=== PATIENT | female | born 1930 | race Caucasian/White ===

== ENCOUNTER 2017-06-15 10:57 | Inpatient (IN) | payer OTHER ==
[2017-06-15] MEDS ORDERED: OXYCODONE PO PRN (12:33)
[2017-06-15] MEDS ORDERED: IRBESARTAN 300 MG PO SCH (12:45)
[2017-06-15] MEDS ORDERED: NON-FORMULARY MEDICATION (Hydrochlorothiazide [Hydrochlorothiazide] 12.5 MG) PO SCH ×22 (12:45)
[2017-06-15 13:06] VITALS: BMI 20.7
--- NOTE | 2017-06-15 16:07 | RS.PTINEVL ---
Subjective - Patient information Date of Evaluation: 06/15/17 Date of Arrival on Unit: 06/15/17 Admitted From:: Facility Transfer ([facility] s/p Left TKA 06/12/17) Usual Living Arrangement: Alone Home Environment: House, Stairs (few) (to go out to car/garage) Surgical History: Lumbar Spine (lumbar fusion 2013) Subjective Information/ Patient Comments:: Patient reports living alone. 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 Range of Motion - ROM Right Upper Extremity AROM: WFL's Left Upper Extremity AROM: WFL's Right Lower Extremity AROM: WFL's (due to recent TKA) Left Lower Extremity AROM: Moderate limitation Sensation - Sensation Right Lower Extremity Sensation: Intact/Normal Left Lower Extremity Sensation: Intact/Normal Balance - Sitting Balance and Reactions Static Sitting Balance: Good Dynamic Sitting Balance: Good (-) - Standing Balance and Reactions Static Standing Balance: Fair Dynamic Standing Balance: Fair Functional Mobility - Bed Mobility Scooting: CGA, 1 person assist, Verbal Cues, Tactile Cues Supine to Sit: Min Assist, 1 person assist, Verbal Cues, Tactile Cues - Transfers Sit to Stand: CGA, Min Assist, 1 person assist, Verbal Cues, Tactile Cues Stand to Sit: Min Assist, Mod Assist, 1 person assist, Verbal Cues, Tactile Cues Stand Pivot Transfers: Min Assist, 1 person assist, Verbal Cues, Tactile Cues Comments:: Patient holds onto walker when performing sit to stand transfer. Pt given VC's to use UE's to push from seated surface. patient given verbal cues to place left LE out before sitting down in the chair. Patient needs added assistance to slowly lower into the chair. - Safety Awareness Safety Awareness: Fair Ambulation - Ambulation Weight Bearing Status: FWB Assistive Device Used: Rolling Walker Distance: 60 feet Gait Deviations: Narrow Based gait, Step-to gait, Forward posture, Short stride Factors Affecting Ambulation: Pain, Weakness, Decreased Safety Treatment time - Time with patient Total treatment time: 20 (mins) Assessment - Assessment Problem List:: Decreased level of function, Requires training/education, Decreased safety/Risk of falls, Pain limits previous level of function Rehab Potential: Good Further Therapy Indicated?: Yes Short Term Goals GOAL #1: Sit to supine with CGA for LLE. Goal to be met by: 06/19/17 GOAL #2: Pt will consistently push with UE's from seat for sit/stand transfers. Goal to be met by: 06/19/17 GOAL #3: Sit to stand with CGA of one. Goal to be met by: 06/19/17 Health Information Coder Goals GOAL #1: All bed mobility independent. Goal to be met by: 06/22/17 GOAL #2: All transfers independent with good safety. Goal to be met by: 06/22/17 GOAL #3: Pt to amb. with RW, independently with good safety. Goal to be met by: 06/22/17 Plan Plan of Care: Therapeutic EX, Neuromuscular Re-Educ, Therapeutic Activity, Self- Care/Home Management Modalities: Cold Pack/Cryotherapy Frequency of Treatment: 1-2 X day, as tolerated Duration of Treatment: 1 Week Anticipated Discharge Destination: Home
[2017-06-15] MEDS: XARELTO PO SCH (16:21)
--- NOTE | 2017-06-15 16:28 | RS.OTINEVL ---
Subjective - Patient information Date of Evaluation: 06/15/17 Date of Arrival on Unit: 06/15/17 Admitted From:: Facility Transfer ([facility] s/p Left TKA 06/12/17) Usual Living Arrangement: Alone Living Arrangement Comments: Pt lives alone at home. Pt has stairs and a rail. She was using her cane to help her get down the steps with her rail. Pt was driving and has family that helps her. 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 Pt had her son make her an adaptive equipment for her shower. Current Level of Function: Partially Dependent Current Equipment Used at Home: Rollator and a cane, and an adapted piece for her bath tub Pain Assessment - Pain Pain Score: 6 Side: left Pain Location Body Site: Knee Pain Aggravating Factors: ADL's, Changing Position, Exercise/Activity, Standing , Sitting Pain Alleviating Factors: Ice, Medication, Position Change, Sitting, Standing, Lying Supine Interventions - Objective Patient Orientation: Person, Place, Time, Situation Current Interventions: IV's Observation: Pt is weak and would benefit from Occupational therapy. Interventions - ROM Right Upper Extremity AROM: WFL's Left Upper Extremity AROM: WFL's - Strength Right Upper Extremity Strength: Mild Weakness Left Upper Extremity Strength: Mild Weakness - Sensation Right Upper Extremity Sensation: Intact/Normal Left Upper Extremity Sensation: Intact/Normal Balance - Sitting Balance Static Sitting Balance: Fair Dynamic Sitting Balance: Fair - Standing Balance Static Standing Balance: Poor Dynamic Standing Balance: Poor ADL Skills - Self Feeding Self Feeding: Independent - Grooming Grooming: Min Assist - Bathing Bathing UE: Min Assist Bathing LE: Max Assist - Dressing Dressing UE: Min Assist Dressing LE: Max Assist - Toilet Management Toileting Management: Min Assist Functional Mobility - Bed Mobility Rolling R/L: CGA Scooting: CGA Supine to Sit: CGA Sit to Supine: CGA - Transfers Sit to Stand: Min Assist Stand to Sit: Min Assist Stand Pivot Transfers: Min Assist - Ambulation Weight Bearing Status: WBAT Assistive Device Used: Gait belt Assistance needed with Ambulation: Min Assist, 1 person assist - Safety Awareness Safety Awareness: Good Additional Treatment Performed - Additional units charged ADL: 15 - Time with patient Total treatment time: 25 Activities Patient Interests:: Watching Television Patient Education Patient Education: Education of diagnosis, Home Exercise Program, Education of Plan of Care Teaching Recipient: Patient Teaching Methods: Discussion Assessment Problem List:: Decreased level of function, Requires training/education, Decreased safety/Risk of falls, Weakness Rehab Potential: Good Further Therapy Indicated?: Yes Short Term Goals - Goals GOAL 1: Pt to be I with Home exercise program. Goal to be met by: 06/19/17 GOAL 2: Pt to be CGA for toilet transfers with Rolling walker. Goal to be met by: 06/19/17 GOAL 3: Pt to be CGA with sink level ADLS. Goal to be met by: 06/19/17 Assisted Goals GOAL 1: Pt to be Independent with HEP and to understand Adaptive EQuipment Goal to be met by: 06/24/17 GOAL 2: Pt to be Mod-I with toilet transfers. Goal to be met by: 06/24/17 GOAL 3: Pt to be mod I with sink level ADLS. Goal to be met by: 06/24/17 Plan Plan of Care: Therapeutic EX, Neuromuscular Re-Educ, Therapeutic Activity, Self- Care/Home Management Modalities: Cold Pack/Cryotherapy Frequency of Treatment: 1-2 X day, as tolerated Duration of Treatment: 2 Weeks Anticipated Discharge Destination: Home
[2017-06-15] MEDS: AVAPRO PO SCH (20:44)
[2017-06-15] MEDS: MEVACOR PO SCH (20:44)
[2017-06-15] MEDS ORDERED: NON-FORMULARY MEDICATION (Lovastatin [Lovastatin] 40 MG) PO SCH ×22 (21:00)
[2017-06-16] MEDS: SYNTHROID PO SCH (05:51)
[2017-06-16] MEDS: MICRO-K CAP PO SCH (08:01)
[2017-06-16] MEDS: HYDROCHLOROTHIAZIDE PO SCH (08:01)
[2017-06-16] MEDS ORDERED: NON-FORMULARY MEDICATION (Potassium Chloride [Potassium Chloride] 10 MEQ) PO SCH ×22 (09:00)
[2017-06-16] MEDS: OXYCODONE PO PRN (14:49)
[2017-06-16] MEDS: CLARITIN PO SCH (14:50)
[2017-06-16] MEDS: XARELTO PO SCH (16:07)
[2017-06-16] MEDS: COLACE PO SCH (20:29)
[2017-06-16] MEDS: MEVACOR PO SCH (20:29)
[2017-06-16] MEDS: AVAPRO PO SCH (20:29)
[2017-06-17] MEDS: SYNTHROID PO SCH (05:46)
[2017-06-17] MEDS: HYDROCHLOROTHIAZIDE PO SCH (08:58)
[2017-06-17] MEDS: MICRO-K CAP PO SCH (08:58)
[2017-06-17] MEDS: COLACE PO SCH ×2 (08:58→20:11)
[2017-06-17] MEDS: CLARITIN PO SCH (08:59)
[2017-06-17] MEDS: XARELTO PO SCH (16:43)
[2017-06-17] MEDS: AVAPRO PO SCH (20:10)
[2017-06-17] MEDS: MEVACOR PO SCH (20:11)
[2017-06-17] MEDS: OXYCODONE PO PRN (23:35)
[2017-06-18] MEDS: SYNTHROID PO SCH (05:30)
[2017-06-18] MEDS: MICRO-K CAP PO SCH (08:48)
[2017-06-18] MEDS: COLACE PO SCH ×2 (08:48→20:08)
[2017-06-18] MEDS: HYDROCHLOROTHIAZIDE PO SCH (08:49)
[2017-06-18] MEDS: CLARITIN PO SCH (08:49)
[2017-06-18] MEDS: XARELTO PO SCH (17:19)
[2017-06-18] MEDS: AVAPRO PO SCH (20:08)
[2017-06-18] MEDS: MEVACOR PO SCH (20:08)
[2017-06-18] MEDS: OXYCODONE PO PRN (22:08)
[2017-06-19] MEDS: SYNTHROID PO SCH (05:37)
[2017-06-19] MEDS: CLARITIN PO SCH (08:39)
[2017-06-19] MEDS: COLACE PO SCH ×2 (08:40→20:41)
[2017-06-19] MEDS: HYDROCHLOROTHIAZIDE PO SCH (08:40)
[2017-06-19] MEDS: MICRO-K CAP PO SCH (08:40)
[2017-06-19] MEDS: XARELTO PO SCH (16:26)
[2017-06-19] MEDS: AVAPRO PO SCH (20:40)
[2017-06-19] MEDS: MEVACOR PO SCH (20:41)
[2017-06-20 05:04] LABS: BASOPHILS # (AUTO) 0.1 K/uL (0-0.2); BASOPHILS % (AUTO) 0.7 % (0.0-3.0); EOSINOPHILS # (AUTO) 0.2 K/ul (0.0-0.7); EOSINOPHILS % (AUTO) 2.1 % (0.0-7.0); HEMATOCRIT 35.9 % (37.0-47.0); HEMOGLOBIN 12.1 g/dl (12.0-16.0); IMMATURE GRANULOCYTE % (AUTO) 1.2 % (0.0-5.0); LYMPHOCYTES # (AUTO) 1.6 K/uL (0.60-3.4); MEAN CORPUSCULAR HEMOGLOBIN 30.9 pg (27.0-31.0); MEAN CORPUSCULAR HGB CONC 33.7 (31.8-35.4); MEAN CORPUSCULAR VOLUME 91.8 fl (81.0-99.0); MONOCYTES # (AUTO) 1.1 K/uL (0.4-2.0); MONOCYTES % (AUTO) 12.7 (0-10); NEUTROPHILS # (AUTO) 5.5 K/ul (2.0-6.9); NEUTROPHILS % (AUTO) 64.3; PLATELET COUNT 302 10^3/uL (140-440); RED BLOOD COUNT 3.91 10^6/ul (4.20-5.40); WHITE BLOOD COUNT 8.53 K/ul (4.6-10.2)
[2017-06-20 05:31] LABS: ANION GAP 14.8; BUN/CREATININE RATIO 24.24; CALCIUM 9.5 mg/dL (8.2-10.2); CREATININE 0.66 mg/dL (0.60-1.30); POTASSIUM 3.8 mmol/L (3.5-5.10)
[2017-06-20] MEDS: SYNTHROID PO SCH (05:50)
[2017-06-20] MEDS: COLACE PO SCH ×2 (08:11→21:01)
[2017-06-20] MEDS: HYDROCHLOROTHIAZIDE PO SCH (08:11)
[2017-06-20] MEDS: MICRO-K CAP PO SCH (08:11)
[2017-06-20] MEDS: CLARITIN PO SCH (08:12)
[2017-06-20] MEDS: OXYCODONE PO PRN (15:23)
[2017-06-20] MEDS: XARELTO PO SCH (16:41)
[2017-06-20] MEDS: AVAPRO PO SCH (21:00)
[2017-06-20] MEDS: MEVACOR PO SCH (21:01)
[2017-06-21] MEDS: SYNTHROID PO SCH (05:38)
[2017-06-21] MEDS: COLACE PO SCH ×2 (08:20→21:09)
[2017-06-21] MEDS: HYDROCHLOROTHIAZIDE PO SCH (08:20)
[2017-06-21] MEDS: MICRO-K CAP PO SCH (08:20)
[2017-06-21] MEDS: CLARITIN PO SCH (08:20)
[2017-06-21] MEDS: OXYCODONE PO PRN (08:21)
[2017-06-21] MEDS: XARELTO PO SCH (16:15)
[2017-06-21] MEDS: MEVACOR PO SCH (21:09)
[2017-06-21] MEDS: AVAPRO PO SCH (21:09)
[2017-06-22] MEDS: SYNTHROID PO SCH (05:51)
[2017-06-22] MEDS: COLACE PO SCH ×2 (09:30→20:22)
[2017-06-22] MEDS: HYDROCHLOROTHIAZIDE PO SCH (09:31)
[2017-06-22] MEDS: OXYCODONE PO PRN ×2 (09:31→18:50)
[2017-06-22] MEDS: CLARITIN PO SCH (09:31)
[2017-06-22] MEDS: MICRO-K CAP PO SCH (09:31)
--- NOTE | 2017-06-22 09:51 | CT ---
EXAM: CTA chest HISTORY: Right lateral chest pain. TECHNIQUE: CTA chest with intravenous contrast. Unenhanced images were not provided. Multiplanar images. 3-D reconstructions. 125 ml of Omnipaque 350. FINDINGS: No comparison CT. There is mild to moderate scattered heterogeneous atheromatous disease of the thoracic and visualize d upper abdominal aorta. The aorta is ectatic. No acute intimal abnormality or dissection is ident ified. There is lower threshold aneurysmal caliber of the ascending aorta at 3 cm. Otherwise the a elliot had caliber within normal limits. No evidence of hemodynamically significant stenosis at the o rigin of the great vessels. Probable mild stenosis at the origin of the celiac trunk. There also m ay be mild stenosis at the origin of the main right renal artery incidentally noted. Heart size is normal. There is no pericardial effusion. Mild diffuse thickening of the esophageal w all. No mediastinal fluid collection. There is respiratory motion artifact degraded image quality especially on the lung targeted images. Chronic-appearing interstitial changes are seen. No consolidated pneumonia is obvious. There is n o vascular congestion, pneumothorax or pleural fluid. Discoid scarring in the posterior right lung b ase is mild. Bones reveal moderately severe degenerative changes of the spine with mild scoliosis. There is a 1. 6 cm low attenuation lesion in the upper right hepatic lobe. IMPRESSION: 1. Scattered mild to moderate heterogeneous atheromatous disease of the aorta. There is lower limi t threshold aneurysmal caliber of the ascending aorta at 3 cm. Otherwise the aorta had normal calib er. No aortic dissection or perivascular fluid collection. Other vascular findings as described in the first paragraph of the report. 2. Small low attenuation lesion of the upper right hepatic lobe possibly a cyst or hemangioma. Thi s can be correlated with ultrasound. 3. Questionable mild thickening of the esophageal wall could be inflammatory. Correlate clinically . If indicated, barium esophagram can be considered.
[2017-06-22] MEDS: XARELTO PO SCH (16:47)
[2017-06-22] MEDS: AVAPRO PO SCH (20:22)
[2017-06-22] MEDS: MEVACOR PO SCH (20:22)
[2017-06-23] MEDS: SYNTHROID PO SCH (06:00)
[2017-06-23 06:02] VITALS: BP 121/77; TEMP 98.2
[2017-06-23] MEDS: HYDROCHLOROTHIAZIDE PO SCH (08:57)
[2017-06-23] MEDS: CLARITIN PO SCH (08:58)
[2017-06-23] MEDS: COLACE PO SCH (08:58)
[2017-06-23] MEDS: MICRO-K CAP PO SCH (08:58)
--- NOTE | 2017-07-26 09:49 | PN ---
DATE OF SERVICE: 06/16/17 CHIEF COMPLAINT: "I am getting better." HISTORY OF PRESENT ILLNESS: She had a total knee on the left before degenerative disease. She came here for convalescense to help her gait. She has some swelling and soreness but is walking a little better. She is drinking and voiding; eating and stooling. She is sleeping on and off during the day and more so at night. OBJECTIVE: V/S: Temperature 99.1 remains afebrile, pulse 96, BP 135/88, respirations 16. GENERAL: No obvious distress. CHEST: Clear. CARDIOVASCULAR: S1, S2 without murmurs. EXTREMITIES: Left lower extremity moderate pitting edema. ORTHOPEDIC: The incision is intact of the left knee. There is mild swelling, redness and warmth but no ballotable or fluctuant areas. Range of motion is markedly diminished and not really assessed and is extremes. ASSESSMENT: # Postop left total knee # Gait decline - acute on chronic # Gait decline - chronic # Degenerative joint disease - previous # Pain - left knee - previous # Postop anemia - mild # Iron deficiency - mild PLAN: 1. Rx - reviewed - consider with changes as needed: None. 2. Labs reviewed, considering changes needed: None. 3. Diet reviewed, considering changes made as needed: None. 4. Fluids reviewed, considering changes made as needed: None. 5. Increase activity: As able. 6. Discuss possible/future discharge plans: Patient expects home. 7. Available to talk as needed with POA or caregiver. XIAO
--- NOTE | 2017-07-26 09:56 | PN ---
DATE OF SERVICE: 06/19/17 CHIEF COMPLAINT: "I am getting over my knee." HISTORY OF PRESENT ILLNESS: She is admitted here following left total knee by Dr. Shelton at [facility]. She was not walking well enough to go straight home and came here for rehabilitation. She had the expected mild anemia, iron deficiency and certainly diminished activity and gait. Since here, she is showing signs of improvement. She is eating, stooling; drinking, voiding; sleeping some during the day mostly at night. Her gait is improving with therapy. Her pain is decreasing. OBJECTIVE: V/S: Temperature 98.2 and remains afebrile, Pulse 96, BP 124/70, respirations 18. GENERAL: No obvious distress. CHEST: Clear. CARDIOVASCULAR: S1, S2 without murmurs. EXTREMITIES: Lower extremity moderate pitting edema. ORTHOPEDIC: The incision is intact of the left knee. There is mild swelling, redness and warmth but no ballotable or fluctuant areas. Range of motion is markedly diminished and not really assessed. ASSESSMENT: # Postop left total knee # Gait decline - acute on chronic # Gait decline - chronic # Degenerative joint disease - previous # Pain - left knee - previous # Postop anemia - mild # Iron deficiency - mild PLAN: 1. Rx - reviewed - consider with changes as needed: None. 2. Labs - check labs tomorrow. 3. Diet reviewed, considering changes made as needed: None. 4. Fluids reviewed, considering changes made as needed: None. 5. Increase activity: As able. 6. Discuss possible/future discharge plans: Patient expects home. 7. Available to talk as needed with POA or caregiver. XIAO
--- NOTE | 2017-07-26 10:49 | HP ---
DATE OF SERVICE: 06/15/17 SOURCE: The source of this information is prior knowledge of the patient who is reliable. CHIEF COMPLAINT: Rehabilitation in the swing bed postop left total knee replacement. HISTORY OF PRESENT ILLNESS: The patient was brought to the facility for incapacitating pain of the left knee failing outpatient management with injections and other approaches. She was offered a total knee and accepted the risk. The surgery went in an unremarkable fashion. I was made aware of her admission. The patient had total knee replacement on the left before degenerative disease. She came here for convalescence to help her gait. She has some swelling and soreness but is walking a little better. She is drinking and voiding, eating and stooling. She is sleeping on and onff during the day and more so at night. PAST HISTORY: CHILDHOOD: Unremarkable. ALLERGIES/INTOLERANCE: NKDA HOME MEDICATIONS: (Prescriptions prior to admission) 1. Lovastatin (Mevacor) 40 mg p.o. bedtime 2. Potassium Chloride (Klor-Con) 10 mEq p.o. daily 3. Hydrochlorothiazide (Hydrodiuril) 12.5 mg p.o. daily 4. Levothyroxine (Synthroid) 75 mcg p.o. q.d a.c. 5. Irbesartan (Avapro) 300 mg p.o. bedtime SCHEDULED MEDICATIONS: 1. Hydrochlorothiazide 12.5 mg p.o. daily 2. Levothyroxine 75 mcg p.o. daily 3. Simvastatin 5 mg p.o. nightly 4. Potassium Chloride 32 mEq p.o. daily 5. Sodium Chloride flush 10 mL IV two times per day 6. Acetaminophen 1,000 mg p.o. q.8hr 7. Docusate sodium 100 mg p.o. b.i.d. 8. Rivaroxaban 10 mg p.o. daily 9. Oxycodone 10 mg p.o. two times per day 10. Tramadol 50 mg p.o. q.8hr 11. Clindamycin 900 mg IV q.8h (Cleocin) IV PAST MEDICAL HISTORY: 1. Arthritis 2. Hyperlipidemia 3. Hypertension 4. Hypothyroidism 5. PONV (postoperative nausea and vomiting) 6. Postmenopausal hormone replacement therapy 7. Potassium deficiency PAST SURGICAL HISTORY: 1. Back surgery [facility] with Dr. Sandoval 2013 2. Bunionectomy, right 02/08/11 3. Cholecystectomy, [facility], 2006 4. Hemorrhoid surgery [facility], 1999 5. Hysterectomy 1970 6. [place] knee scope, diagnostic, left, 02/24/17 7. Left knee arthroscopy with excision of posterior horn of lateral meniscus, lateral femoral condyle subchondroplasty and patellar chondroplasty performed by Kiet Shelton M.D. at [facility] OR 8. Thyroidectomy 9. Tonsillectomy SOCIAL HISTORY: Reports she has never smoked. She has never used smokeless tobacco. FAMILY HISTORY: Family history includes cancer in her brother and another family member; heart disease in her father and mother. REVIEW OF SYSTEMS: CONSTITUTIONAL: Negative for fever, malaise or fatigue. HEENT: Negative for nasal congestion, sore throat, facial pain, ear fullness, hearing change. Eyes: Negative for redness or vision change. RESPIRATORY: Negative for dyspnea, cough, wheeze, hemoptysis. CARDIOVASCULAR: Negative for chest pain, palpitations and leg edema. GASTROINTESTINAL: Negative for vomiting, diarrhea, rectal bleeding, melena, stool change. GENITOURINARY: Negative for hematuria, dysuria and frequency. MUSCULOSKELETAL: Negative for arthralgias, red or swollen joints, just the left knee. SKIN: Negative for rash. NEUROLOGIC: Negative for syncope, dizziness, parethesias, extremity weakness. HEMATOLOGIC: Negative for adenopathy, bruising, night sweats. PSYCHIATRIC/BEHAVIORAL: Negative for anxiety, depression, suicide ideation/ intent PHYSICAL EXAMINATION: VITALS: Temperature 98.1, pulse 83, BP 123/73, respiratory rate 20, 02 sat 96% on room air. Height 5'5", weight 125 lb. BMI 20.8 GENERAL: No distress. INTEGUMENT: Warm and dry without redness or pain. HEENT: Pupils equal, round, extraocular movements intact. No scleral icterus. No conjunctival injection. No nasal or ear discharge. Pharynx without redness, swelling or mass. NECK: Trachea midline. No visible lymphadenopathy, thyromegaly, mass seen or felt and supple. RESPIRATORY: No accessory muscle use. No crackles. No wheezes. No rhonchi. No dullness on percussion. CV: Regular rate. Regular rhythm. No murmur or rub. No edema. GI: Soft. No rebound, guarding, mass or tenderness. RECTAL/: Deferred. MUSCULOSKELETAL: No cyanosis. No joint deformity, redness, swelling, pain to palpation or motion other than moderate around left knee. NEUROLOGIC: Awake, alert, oriented times three. ORTHOPEDIC: The incision is intact of the left knee. There is mild swelling, redness and warmth but no ballotable or fluctuant areas. Range of motion is markedly diminished and not really assessed. LABS/RADIOLOGY: Recent labs from [facility]: 06/13/17 Hgb 12.2, HCT 38.1. BMP: NA 137, potassium 137, chloride 3.7, chloride 98, C02 26, BUN 11, creatinine 0.6. Liver profile no results for input AST, ALT, lipase, bili dir, bili tot, alkaline phosphtase in the last 72 hours. Chest x-ray reviewed and showed nothing acute. EKG was reviewed and sinus rhythm/normal. ASSESSMENT/PROBLEM LIST: Diagnosis 1. Acute meniscal tear of the left knee 2. Primary osteoarthritis of left kn ee 3. Postop 4. Anticoagulation - Xarelto 5. Gait decline - acute 6. Hypertension 7. Hyperlipidemia 8. Allergic rhinitis 9. 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 Chronic back pain 12. Degenerative joint disease 13. Diverticular disease 14. Colon polyps 15. Gait decline 16. Corns and calluses 17. Osteoporosis 18. Onychomycoses 19. Menopausal REASON FOR ADMISSION: # Postoperative left total knee # Degenerative joint disease - left total knee # Pain left total knee # Incision doing well # Pain left knee -improving # Anemia - resolved # Iron deficiency - treating # Gait decline - improving, acute on chronic PLAN: 1. Rx - reviewed - consider with changes as needed: None. 2. Labs reviewed, considering changes needed: None. 3. Diet reviewed, considering changes made as needed: None. 4. Fluids reviewed, considering changes made as needed: None. 5. Increase activity: As able. 6. Discuss possible/future discharge plans: Patient expects home. 7. Available to talk as needed with POA or caregiver. CONDITION: Stable. MTDD
--- NOTE | 2017-07-26 11:28 | DS ---
DATE OF SERVICE: 06/23/17 CHIEF COMPLAINT: Rehabilitation in the swing bed postop left total knee replacement. HISTORY OF PRESENT ILLNESS: The patient was brought to the facility for incapacitating pain of the left knee failing outpatient management with injections and other approaches. She was offered a total knee and accepted the risk. The surgery went in an unremarkable fashion. I was made aware of her admission. The patient had total knee replacement on the left before degenerative disease. She came here for convalescence to help her gait. She has some swelling and soreness but is walking a little better. She is drinking and voiding, eating and stooling. She is sleeping on and onff during the day and more so at night. PAST HISTORY: CHILDHOOD: Unremarkable. ALLERGIES/INTOLERANCE: [facility] HOME MEDICATIONS: (Prescriptions prior to admission) 1. Lovastatin (Mevacor) 40 mg p.o. bedtime 2. Potassium Chloride (Klor-Con) 10 mEq p.o. daily 3. Hydrochlorothiazide (Hydrodiuril) 12.5 mg p.o. daily 4. Levothyroxine (Synthroid) 75 mcg p.o. q.d a.c. 5. Irbesartan (Avapro) 300 mg p.o. bedtime SCHEDULED MEDICATIONS: 1. Hydrochlorothiazide 12.5 mg p.o. daily 2. Levothyroxine 75 mcg p.o. daily 3. Simvastatin 5 mg p.o. nightly 4. Potassium Chloride 32 mEq p.o. daily 5. Sodium Chloride flush 10 mL IV two times per day 6. Acetaminophen 1,000 mg p.o. q.8hr 7. Docusate sodium 100 mg p.o. b.i.d. 8. Rivaroxaban 10 mg p.o. daily 9. Oxycodone 10 mg p.o. two times per day 10. Tramadol 50 mg p.o. q.8hr 11. Clindamycin 900 mg IV q.8h (Cleocin) IV PAST MEDICAL HISTORY: 1. Arthritis 2. Hyperlipidemia 3. Hypertension 4. Hypothyroidism 5. PONV (postoperative nausea and vomiting) 6. Postmenopausal hormone replacement therapy 7. Potassium deficiency PAST SURGICAL HISTORY: 1. Back surgery [facility] with Dr. Sandoval 2013 2. Bunionectomy, right 02/08/11 3. Cholecystectomy, [facility], 2006 4. Hemorrhoid surgery [facility], 1999 5. Hysterectomy 1970 6. MA knee scope, diagnostic, left, 02/24/17 7. Left knee arthroscopy with excision of posterior horn of lateral meniscus, lateral femoral condyle subchondroplasty and patellar chondroplasty performed by Kiet Shelton M.D. at [facility] OR 8. Thyroidectomy 9. Tonsillectomy SOCIAL HISTORY: Reports she has never smoked. She has never used smokeless tobacco. FAMILY HISTORY: Family history includes cancer in her brother and another family member; heart disease in her father and mother. REVIEW OF SYSTEMS: CONSTITUTIONAL: Negative for fever, malaise or fatigue. HEENT: Negative for nasal congestion, sore throat, facial pain, ear fullness, hearing change. Eyes: Negative for redness or vision change. RESPIRATORY: Negative for dyspnea, cough, wheeze, hemoptysis. CARDIOVASCULAR: Negative for chest pain, palpitations and leg edema. GASTROINTESTINAL: Negative for vomiting, diarrhea, rectal bleeding, melena, stool change. GENITOURINARY: Negative for hematuria, dysuria and frequency. MUSCULOSKELETAL: Negative for arthralgias, red or swollen joints, just the left knee. SKIN: Negative for rash. NEUROLOGIC: Negative for syncope, dizziness, parethesias, extremity weakness. HEMATOLOGIC: Negative for adenopathy, bruising, night sweats. PSYCHIATRIC/BEHAVIORAL: Negative for anxiety, depression, suicide ideation/ intent. PHYSICAL EXAMINATION: VITALS: Temperature 98.1, pulse 83, BP 123/73, respiratory rate 20, 02 sat 96% on room air. Height 5'5", weight 125 lb. BMI 20.8 GENERAL: No distress. INTEGUMENT: Warm and dry without redness or pain. HEENT: Pupils equal, round, extraocular movements intact. No scleral icterus. No conjunctival injection. No nasal or ear discharge. Pharynx without redness, swelling or mass. NECK: Trachea midline. No visible lymphadenopathy, thyromegaly, mass seen or felt and supple. RESPIRATORY: No accessory muscle use. No crackles. No wheezes. No rhonchi. No dullness on percussion. CV: Regular rate. Regular rhythm. No murmur or rub. No edema. GI: Soft. No rebound, guarding, mass or tenderness. RECTAL/: Deferred. MUSCULOSKELETAL: No cyanosis. No joint deformity, redness, swelling, pain to palpation or motion other than moderate around left knee. NEUROLOGIC: Awake, alert, oriented times three. ORTHOPEDIC: The incision is intact of the left knee. There is mild swelling, redness and warmth but no ballotable or fluctuant areas. Range of motion is markedly diminished and not really assessed. LABS/RADIOLOGY: Recent labs from [facility]: 06/13/17 Hgb 12.2, HCT 38.1. BMP: NA 137, potassium 137, chloride 3.7, chloride 98, C02 26, BUN 11, creatinine 0.6. Liver profile no results for input AST, ALT, lipase, bili dir, bili tot, alkaline phosphtase in the last 72 hours. Chest x-ray reviewed and showed nothing acute. EKG was reviewed and sinus rhythm/normal. ASSESSMENT/PROBLEM LIST: Patient Active Problem List: Diagnosis 1. Acute meniscal tear of the left knee 2. Primary osteoarthritis of left kn ee 3. Postop 4. Anticoagulation - Xarelto 5. Gait decline - acute 6. Hypertension 7. Hyperlipidemia 8. Allergic rhinitis 9. 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 Chronic back pain 12. Degenerative joint disease 13. Diverticular disease 14. Colon polyps 15. Gait decline 16. Corns and calluses 17. Osteoporosis 18. Onychomycoses 19. Menopausal HOSPITAL COURSE: She did well. She had decreasing pain and increased flexibility in use of her left lower extremity from her left total knee. Her vitals remained stable. She had labs repeated on the with white count of 8, hemoglobin 12.1 and chemistries that were unremarkable but note iron at 33. Looking at all options , she decided to be discharged home. DISCHARGE ASSESSMENT/PROBLEM LIST (CHANGED FROM ADMISSION): # Postoperative left total knee # Degenerative joint disease - left total knee # Pain left total knee # Incision doing well # Pain left knee -improving # Anemia - resolved # Iron deficiency - treating # Gait decline - improving, acute on chronic PLAN: 1. Discharge 2. Medications: a) Colace 100 b.i.d. b) HCTZ 12.5 once a day c) Avapro 300 mg once a day d) Synthroid 75 once a day e) Claritin 10 once a day f) Mevacor 40 once a day g) Oxycodone 2.5/15 mg every four hours as needed (prescription originally from Dr. Shelton - ortho) h) Micro K 10 mEq once a day i) Xarelto 10 mg once a day for 11 days j) Prescription was left at the hospital for a rolling walker. 3. Diet - healthy heart 4. Activity - gradually increase as able 5. Followup: a) Dr. Franco as planned b) Dr. Nikita gil as planned PROGNOSIS: Good CONDITION: Stable, improved. MTDD
== END 2017-06-23 14:15 | disposition home or self-care (01) | DRG 561 ==
LOC: MEDSURG B 10:57
PROVIDERS: ADMIT Family Medicine; ATTEND Family Medicine
DX: Z47.1 Aftercare following joint replacement surgery (principal); Z96.652 Presence of left artificial knee joint; M17.12 Unilateral primary osteoarthritis, left knee; D50.9 Iron deficiency anemia, unspecified; R26.89 Other abnormalities of gait and mobility; I10 Essential (primary) hypertension; E78.5 Hyperlipidemia, unspecified; E03.9 Hypothyroidism, unspecified; Z79.899 Other long term (current) drug therapy
CPT/HCPCS: 36415; 80048; 83540; 85025; 87081; 93005; 93010; 97802

== ENCOUNTER → 2017-07-26 | Outpatient (POV) | payer OTHER | LOC: OUTPT 00:01 | PROVIDERS: ATTEND Otolaryngology | DX: H91.90 Unspecified hearing loss, unspecified ear (principal) | CPT/HCPCS: 92557; 92567 ==

== ENCOUNTER 2017-08-25 11:00 | Outpatient (RCR) ==
--- NOTE | 2017-08-14 10:18 | RS.OPPTEV2 ---
Date of Note: 08/11/17 Visit #: 1 Date of Evaluation: 08/11/17 Payer Source: MEDICARE Date of Onset/Injury/Change in Status: 06/12/17 Treatment Diagnosis: status post lumbar fusion History of Condition/Mechanism of Injury:: Patient had Left TKA two months ago. She had surgery on 06/12/17, went to [facility] for therapy 06/15/17 through 06/23/17. She has had no Home Health since being home from the hospital. Prior Level of Function.....Patient was independent with: ADL's, Self Care, Caregiving, Ambulation/Mobility, Community Integration/Access Functional Limitations: ADL's, Standing, Bending, Squatting, Ambulation, Community Access/Integration Current Subjective/complaints:: Patient reports left wade pain. States she using a straight cane outside of home and sometimes in the home. If she needs to get around quick, she will use a rolling walker. Reports difficulty with long distances, due to left LE fatigue and pain. Her laundry is in the basement. Her [id number] does her laundry because she is not able to go up and down stairs very well yet. She denies tingling or numbness into the LE. States she takes Extra Strength Tylenol prior to bed. She continues to ice the left knee. She puts vitamin E on her incision. Treatment Side (optional): Left Medical History Medical History: Hypertension Surgical History: Lumbar Spine (lumbar fusion 2013) Surgical History Comments:: L TKA Smoking Status: Unknown if ever smoked Hx Home Medications: Celebrex Patient's Goals: Her goal is to return to her previous level of function. Pain Assessment - Pain Description Pain Location: left knee Current Pain Intensity: 4/10 Worst Pain Intensity: not rated Functional Outcome Measure LE Functional Scale: 23 (23/80=71.25% impairment) - G Codes & Severity Modifier G Codes & Modifier: Mobility current CL. Mobility goal CJ Source of G Code score: LE functional scale Observation - Observation Inspection: Left knee demonstrates clean, well-healing incision. Gait - Gait Pattern Gait Comments: Patient ambulates into department with straight cane in the right hand. She demonstrates decreased stance on the left LE. Demonstrates decreased left hip and knee flexion. She consistently clears both feet during swing phase. - Left Knee ROM Left Knee Extension: -3 degrees full extension Left Knee Flexion: 110 (degrees AROM) Knee ROM Limitations: Soft Tissue Tightness, Pain - Right Knee ROM Right Knee Extension: full extension Right Knee Flexion: 130 (degrees AROM) - Left Knee Strength Left Knee Extension: 4 Good Left Knee Flexion: 4 Good Comments: Left hip 4 to 4+/5 throughout. - Right Knee Strength Right Knee Extension: 4+ Good + Right Knee Flexion: 4+ Good + Palpation Comments:: Patient reports some tenderness below the knee in the anterior lower leg. Sensation - Sensation Right Lower Extremity: Intact/Normal Left Lower Extremity: Intact/Normal Additional Comments: Additional Comments: SLR bilaterally 55-60 degrees. Interventions - Exercise/Activities/Manual Therapy Exercises/Activities: Pt instructed in HEP for TKA exercises: AP's, quad sets, SLR's, SAQ's, standing HS curls, and supine knee flexion. Manual Therapy: NA HOME EXERCISE PROGRAM: AP's, quad sets, SLR's, SAQ's, standing HS curls, and supine knee flexion. - Charges Total Direct Minutes: 50 mins Total Treatment Time: 50 mins Procedures billed for this date of service:: WHITNEY CHMABERS Assessment Assessment: Patient presents to therapy two months s/p left TKA. She demonstrates decreased functional left knee AROM and muscle strength. She walks with an assistive device and is unable to perform all her ADL's independently at this time. She demonstrates great potential to regain functional left knee AROM and strength to return her to her level of independence that she had prior to surgery. Patient Education: Education of diagnosis, Body/Joint mechanics, Home Exercise Program, Home Safety, Activity Modification, Education of Plan of Care Rehab Potential: Good Short Term Goals Goal #1: Patient will display independence with home exercise program. Goal to be met by: 08/28/17 Goal #2: Left knee quad strength 4+/5. Goal to be met by: 08/28/17 Goal #3: Left knee AROM 0 to 120 degrees. Goal to be met by: 08/28/17 Prison Goals Goal #1: Pt knows HEP and to continue ex's to maintain functional level at D/C. Goal to be met by: 09/18/17 Goal #2: Score on LE functional scale improved to <39% impairment. Goal to be met by: 09/18/17 Goal #3: Pt to amb. level/unlevel terrain w/o assist device with good safety. Goal to be met by: 09/18/17 Goal #4: Pt able to perform all ADL's without difficulty or knee pain. Goal to be met by: 09/18/17 Plan - Treatment to be Provided Procedures: Therapeutic Exercises, Therapeutic Activity, Manual Therapy, Patient Education Modalities: Electrical Stimulation, Cryotherapy - Treatment Plan Frequency: 3 X week Duration: 4 weeks ORDER # VISITS AND/OR THROUGH DATE: 09/18/17 - Treatment Code (1) Knee pain Code(s): M25.569 - PAIN IN UNSPECIFIED KNEE Qualifiers: Chronicity: acute Laterality: left Qualified Code(s): M25.562 - Pain in left knee (2) Leg weakness Code(s): M62.81 - MUSCLE WEAKNESS (GENERALIZED) Qualifiers: Laterality: left Qualified Code(s): R29.898 - Other symptoms and signs involving the musculoskeletal system Comments: M62.81 (3) Gait abnormality Code(s): R26.9 - UNSPECIFIED ABNORMALITIES OF GAIT AND MOBILITY Comments: R26.9 (4) Aftercare following joint replacement surgery Code(s): Z47.1 - AFTERCARE FOLLOWING JOINT REPLACEMENT SURGERY Qualifiers: Joint replacement surgery site: knee Laterality: left Qualified Code(s): Z47.1 - Aftercare following joint replacement surgery; Z96.652 - Presence of left artificial knee joint
--- NOTE | 2017-08-16 15:01 | RS.OPPTDN ---
Subjective Date of Note: 08/16/17 Visit #: 2 Date of Evaluation: 08/11/17 Payer Source: MEDICARE Treatment Diagnosis: status post lumbar fusion Current Subjective/complaints:: Patient reports some heat and mild swelling at the left knee joint, but c/c is aching in the wade. States she is walking in her home without cane, but continues to use it in the community for safety. Pain Assessment - Pain Description Pain Location: left knee Current Pain Intensity: 4/10 Interventions - Exercise/Activities/Manual Therapy Exercises/Activities: AP's, quad sets, ham sets, and heel slides. Passive left knee flexion and extension. Geltle ham stretching. SLR and hip abduction, Added 2# to SAQ. Red theraband for ham curls and ankle df. Isometric hip add with ball. In sitting, LAQ with 2#. Assisted onto stationary bike for forward revolutions, 3mins. Patient assisted off of bike and walked to parking lot for safety. Total minutes of Exercise: 40mins/43mins Manual Therapy: NA HOME EXERCISE PROGRAM: AP's, quad sets, SLR's, SAQ's, standing HS curls, and supine knee flexion. - Charges Total Direct Minutes: 40mins Total Treatment Time: 45mins Procedures billed for this date of service:: EX3 Assessment: Patient continues to have discomfort and some limitiation of functional activities. She is motivated to progress as she lives alone. Patient Education: Body/Joint mechanics, Home Exercise Program, Home Safety, Activity Modification Patient demonstrates compliance with HEP?: Yes Short Term Goals Goal #1: Patient will display independence with home exercise program. Goal to be met by: 08/28/17 Progress towards Goal:: Progressing Goal #2: Left knee quad strength 4+/5. Goal to be met by: 08/28/17 Goal #3: Left knee AROM 0 to 120 degrees. Goal to be met by: 08/28/17 Progress towards Goal:: Progressing Boarder Steam Goals Goal #1: Pt knows HEP and to continue ex's to maintain functional level at D/C. Goal to be met by: 09/18/17 Goal #2: Score on LE functional scale improved to <39% impairment. Goal to be met by: 09/18/17 Goal #3: Pt to amb. level/unlevel terrain w/o assist device with good safety. Goal to be met by: 09/18/17 Goal #4: Pt able to perform all ADL's without difficulty or knee pain. Goal to be met by: 09/18/17 Plan PLAN OF CARE EXPIRES ON:: 09/18/17 ORDER # VISITS AND/OR THROUGH DATE: 09/18/17 PLAN: Progress Exercises (Progress exercise for strength and ROM to increase patients functional activity level.)
--- NOTE | 2017-08-18 13:00 | RS.OPPTDN ---
Subjective Date of Note: 08/18/17 Visit #: 3 Date of Evaluation: 08/11/17 Payer Source: MEDICARE Treatment Diagnosis: status post lumbar fusion Current Subjective/complaints:: Patient is concerned the bend in her knee,but has no problem with the extension.She does not have sharp pain ,but soreness present in the L LE. Pain Assessment - Pain Description Pain Location: left knee Pain Description: Dull, Aching Current Pain Intensity: 3/10 Interventions - Exercise/Activities/Manual Therapy Exercises/Activities: 50 mins. total,beginning with 5 mins on bike,then supine and sitting TKA protocol,3/10 each exercise.AROM is 117 flexion,0 extension. Total minutes of Exercise: 50 Manual Therapy: NA Total minutes of Manual Therapy: 0 HOME EXERCISE PROGRAM: AP's, quad sets, SLR's, SAQ's, standing HS curls, and supine knee flexion. - Charges Total Direct Minutes: 45 Total Treatment Time: 50 Procedures billed for this date of service:: ex3 Assessment: Patient has functional L knee ROM,reports stretch discomfort at end range of knee flexion graham.She can benefit from strengthening the quads as she fatigues easily with eccentric motions today.She has no obvious gait deviations today. Patient Education: Body/Joint mechanics, Home Exercise Program, Education of Plan of Care Patient demonstrates compliance with HEP?: Yes Short Term Goals Goal #1: Patient will display independence with home exercise program. Goal to be met by: 08/28/17 Progress towards Goal:: Progressing Goal #2: Left knee quad strength 4+/5. Goal to be met by: 08/28/17 Progress towards Goal:: Progressing Goal #3: Left knee AROM 0 to 120 degrees. Goal to be met by: 08/28/17 Progress towards Goal:: Progressing Measurement Psychologist Goals Goal #1: Pt knows HEP and to continue ex's to maintain functional level at D/C. Goal to be met by: 09/18/17 Progress towards goal: Progressing Goal #2: Score on LE functional scale improved to <39% impairment. Goal to be met by: 09/18/17 Goal #3: Pt to amb. level/unlevel terrain w/o assist device with good safety. Goal to be met by: 09/18/17 Goal #4: Pt able to perform all ADL's without difficulty or knee pain. Goal to be met by: 09/18/17 Plan PLAN OF CARE EXPIRES ON:: 09/18/17 ORDER # VISITS AND/OR THROUGH DATE: 09/18/17 PLAN: Progress Exercises
--- NOTE | 2017-08-22 15:10 | RS.OPPTDN ---
Subjective Date of Note: 08/22/17 Visit #: 4 Date of Evaluation: 08/11/17 Payer Source: MEDICARE Treatment Diagnosis: status post lumbar fusion Current Subjective/complaints:: Patient says she felt the best she has been since her surgery on her previous PT session. She says she was able to go to [facility] and did not have any difficulty/pain. Pain Assessment - Pain Description Pain Location: left knee Pain Description: Dull, Aching Current Pain Intensity: none Interventions - Exercise/Activities/Manual Therapy Exercises/Activities: 38 mins. Patient received PROM/gentle stretching to the L knee. She rec'd patellar mobilization, scar education. QS, heel slides, SAQ 1# , SLR (2x5), pillow squeezes, hip abd with knee extension, DF with red tband, LAQ. 2x10 reps. Manual Therapy: NA HOME EXERCISE PROGRAM: AP's, quad sets, SLR's, SAQ's, standing HS curls, and supine knee flexion. - Charges Total Direct Minutes: 38 Total Treatment Time: 38 Procedures billed for this date of service:: ex3 Assessment: Patient progressing well with knee flexion and amb in community/ grocery shopping using [place] not resulting in any difficulty or pain. Patient Education: Education of diagnosis, Body/Joint mechanics, Home Exercise Program, Home Safety, Activity Modification, Education of Plan of Care Patient demonstrates compliance with HEP?: Yes Short Term Goals Goal #1: Patient will display independence with home exercise program. Goal to be met by: 08/28/17 Progress towards Goal:: Progressing Goal #2: Left knee quad strength 4+/5. Goal to be met by: 08/28/17 Progress towards Goal:: Progressing Goal #3: Left knee AROM 0 to 120 degrees. Goal to be met by: 08/28/17 Progress towards Goal:: Progressing Rod Hanger Goals Goal #1: Pt knows HEP and to continue ex's to maintain functional level at D/C. Goal to be met by: 09/18/17 Progress towards goal: Progressing Goal #2: Score on LE functional scale improved to <39% impairment. Goal to be met by: 09/18/17 Goal #3: Pt to amb. level/unlevel terrain w/o assist device with good safety. Goal to be met by: 10/23/17 Goal #4: Pt able to perform all ADL's without difficulty or knee pain. Goal to be met by: 09/18/17 Plan PLAN OF CARE EXPIRES ON:: 09/18/17 ORDER # VISITS AND/OR THROUGH DATE: 09/18/17 PLAN: Progress Exercises
--- NOTE | 2017-08-25 13:36 | RS.OPPTDN ---
Subjective Date of Note: 08/25/17 Visit #: 5 Date of Evaluation: 08/11/17 Payer Source: MEDICARE Treatment Diagnosis: status post lumbar fusion Current Subjective/complaints:: Patient reports she is pleased with her progress. She reports she is slowly progressing away from cane. States she is using it in the community for safety. States her strength is improving and she is doing more light activities at home. Pain Assessment - Pain Description Pain Location: left knee Pain Description: Dull, Aching Current Pain Intensity: none Interventions - Exercise/Activities/Manual Therapy Exercises/Activities: 40 mins. Patient received PROM/gentle stretching to the L knee. QS, heel slides, SAQ 2#, SLR, pillow squeezes, hip abd with knee extension , all 2s/10reps. Isometric ankle inversion with ball. Green theraband for ankld df and ham curls. In sitting, LAQ. Light hamstring and heel cord stretching. Assisted patient to stationary bike, 3mins. Reviewed home safety. Walked with patient to car in parking lot to assess gait and safety. Total minutes of Exercise: 40mins Manual Therapy: NA HOME EXERCISE PROGRAM: AP's, quad sets, SLR's, SAQ's, standing HS curls, and supine knee flexion. - Charges Total Direct Minutes: 40mins Total Treatment Time: 40mins Procedures billed for this date of service:: EX3 Assessment: Patient progressing with strength and with light ADL's at home. Patient Education: Home Exercise Program, Home Safety, Activity Modification Patient demonstrates compliance with HEP?: Yes Short Term Goals Goal #1: Patient will display independence with home exercise program. Goal to be met by: 08/28/17 Progress towards Goal:: Progressing Goal #2: Left knee quad strength 4+/5. Goal to be met by: 08/28/17 Progress towards Goal:: Progressing Goal #3: Left knee AROM 0 to 120 degrees. Goal to be met by: 08/28/17 Progress towards Goal:: Progressing Infantry Unit Leader Goals Goal #1: Pt knows HEP and to continue ex's to maintain functional level at D/C. Goal to be met by: 09/18/17 Progress towards goal: Progressing Goal #2: Score on LE functional scale improved to <39% impairment. Goal to be met by: 09/18/17 Goal #3: Pt to amb. level/unlevel terrain w/o assist device with good safety. Goal to be met by: 09/18/17 Progress towards goal: Progressing Goal #4: Pt able to perform all ADL's without difficulty or knee pain. Goal to be met by: 09/18/17 Progress towards goal: Progressing Plan PLAN OF CARE EXPIRES ON:: 09/18/17 ORDER # VISITS AND/OR THROUGH DATE: 09/18/17 PLAN: Continue Plan of Care (Will continue strengthening exercise to increase functional activity level.)
== END 2017-08-26 ==
PROVIDERS: ATTEND Family Medicine
DX: Z96.652 Presence of left artificial knee joint (principal); R26.9 Unspecified abnormalities of gait and mobility; Z47.1 Aftercare following joint replacement surgery

== ENCOUNTER 2017-09-25 13:22 | Outpatient (CLI) | payer OTHER ==
--- NOTE | 2017-09-25 14:02 | DI ---
EXAM: The chest and unilateral ribs HISTORY: Chest wall. COMPARISON: None TECHNIQUE: Single view chest and two views right ribs were performed FINDINGS: No airspace consolidation. Granulomatous calcification. Heart normal in size. Mediastin al contour normal, noting atherosclerosis and uncoiled aorta. No pleural effusion or pneumothorax. L umbar spinal fusion hardware, incompletely imaged. No acute abnormalities of the bones. Specificall y, no right rib fracture identified. IMPRESSION: 1. No right rib fracture identified. 2. No acute cardiopulmonary process.
== END 2017-09-25 13:23 | disposition home or self-care (01) ==
LOC: RAD 13:22
PROVIDERS: ATTEND Family Medicine
DX: R07.89 Other chest pain (principal)

== ENCOUNTER 2018-06-01 13:07 | Outpatient (CLI) | payer OTHER ==
--- NOTE | 2018-06-01 13:46 | DI ---
EXAM: Two views of the chest. History: Chest pain. Comparison: Chest radiograph 09/25/2017, chest CT 06/22/2017 Findings: Heart size is within normal limits. Tortuous thoracic aorta. Atherosclerotic vascular ca lcifications. No focal consolidation. No appreciable pleural fluid and no pneumothorax. Degenerati ve changes of the spine. Impression: No acute cardiopulmonary process.
--- NOTE | 2018-06-01 14:05 | DI ---
EXAM: Two views of the sternum. History: Chest trauma. Comparison: Chest radiograph 06/01/2018 Findings: Evaluation is difficult due to overlapping osseous and soft tissue structures. There is a mildly displaced fracture of the mid sternal body. Impression: Mildly displaced fracture of the mid sternal body.
== END 2018-06-01 13:08 | disposition home or self-care (01) ==
LOC: RAD 13:07
PROVIDERS: ATTEND Family Medicine
DX: R07.9 Chest pain, unspecified (principal); V89.2XXA Person injured in unspecified motor-vehicle accident, traffic, initial encounter